=== PATIENT | female | born 1990 | race African-American/Black ===

== ENCOUNTER 2017-02-12 16:34 | Emergency (ER) | payer OTHER ==
[2017-02-12 16:43] VITALS: BP 126/62; PULSE 78; TEMP 98.8; BMI 30.4
[2017-02-12] MEDS ORDERED: clonazePAM 0.5 MG TABLET PO ONE ×2 (16:43→16:49)
[2017-02-12] MEDS ORDERED: clonazePAM 0.5 MG TABLET ONE (16:46)
--- NOTE | 2017-02-12 16:56 | PDOC ---
History of Present Illness <Lyn Brown - Last Filed: 02/12/17 17:13> - History of Present Illness Initial Comments: 02/12/17 17:01 The patient is a 26 year old female, with a significant past medical history of anxiety (reportedly taking 1mg clonazepam BID) and hypertension, who presents to the emergency department requesting a refill of her clonazepam and states she has been having a panic attack since yesterday. She reports feeling better now. However, pt reports that last night and this morning, she was very anxious". She reports taking her last dose of clonazepam around 3PM yesterday. She states she sees a psychiatrist at [facility] who prescribes her meds, and she had to schedule appointments with two therapists before I can see the psychiatrist, and my appointment is February 19. Pt now denies any complaints and is requesting a refill of her meds. I spoke with pt's psychiatrist, who states that pt has missed her last several appointments with her therapists. She denies chest pain, headache and dizziness. She denies fever, chills, nausea , vomit, diarrhea and constipation. She denies dysuria, frequency, urgency and hematuria. Allergies: NKDA Past surgical history: none reported Social history: Pt denies toxic habits <Blu Wright - Last Filed: 02/14/17 10:15> - General Chief Complaint: RX Refill Stated Complaint: PANICK ATTACK,NEEDS PRESCRIPTION REFILL Time Seen by Provider: 02/12/17 16:36 Past History <Lyn Brown - Last Filed: 02/12/17 17:13> - Past Medical History HTN: Yes Psychiatric Problems: Yes (ANXIETY) Thyroid Disease: Yes (HYPO) - Suicide/Smoking/Psychosocial Hx Smoking History: Never smoked Have you smoked in the past 12 months: No Information on smoking cessation initiated: No Hx Alcohol Use: No Drug/Substance Use Hx: No Substance Use Type: None <Blu Wright - Last Filed: 02/14/17 10:15> - Past Medical History Allergies/Adverse Reactions: Allergies Allergy/AdvReac Type Severity Reaction Status Date / Time No Known Allergies Allergy Verified 02/12/17 16:36 Home Medications: Ambulatory Orders Clonazepam [Klonopin] 1 mg PO BID 02/12/17 Levothyroxine [Synthroid -] 75 mcg PO DAILY 02/12/17 Lisinopril 10 mg PO DAILY 02/12/17 Review of Systems - Review of Systems Comments:: 02/12/17 17:07 """GENERAL/CONSTITUTIONAL: No fever or chills. No weakness. HEAD, EYES, EARS, NOSE AND THROAT: No change in vision. No ear pain or discharge. No sore throat. CARDIOVASCULAR: No chest pain or shortness of breath. RESPIRATORY: No cough, wheezing, or hemoptysis. GASTROINTESTINAL: No nausea, vomiting, diarrhea or constipation. GENITOURINARY: No dysuria, frequency, or change in urination. MUSCULOSKELETAL: No joint or muscle swelling or pain. No neck or back pain. SKIN: No rash NEUROLOGIC: No headache, vertigo, loss of consciousness, or change in strength/ sensation. ENDOCRINE: No increased thirst. No abnormal weight change. HEMATOLOGIC/LYMPHATIC: No anemia, easy bleeding, or history of blood clots. ALLERGIC/IMMUNOLOGIC: No hives or skin allergy. PSYCHIATRIC: (+) anxiety" <Blu Wright - Last Filed: 02/14/17 10:15> *Physical Exam - Vital Signs Last Vital Signs Temp Pulse Resp BP Pulse Ox 98.8 F 78 18 126/62 100 02/12/17 16:35 02/12/17 16:35 02/12/17 16:35 02/12/17 16:35 02/12/17 16:35 <Lyn Brown - Last Filed: 02/12/17 17:13> - Vital Signs Last Vital Signs Temp Pulse Resp BP Pulse Ox 98.8 F 78 18 126/62 100 02/12/17 16:35 02/12/17 16:35 02/12/17 16:35 02/12/17 16:35 02/12/17 16:35 - Physical Exam Comments: 02/12/17 17:08 """GENERAL: Awake, alert, and fully oriented, in no acute distress HEAD: No signs of trauma EYES: PERRLA, EOMI, sclera anicteric, conjunctiva clear ENT: Auricles normal inspection, hearing grossly normal, nares patent, oropharynx clear without exudates. Moist mucosa NECK: Nontender, no stepoffs, Normal ROM, supple, no lymphadenopathy, JVD, or masses LUNGS: Breath sounds equal, clear to auscultation bilaterally. No wheezes, and no crackles HEART: Regular rate and rhythm, normal S1 and S2, no murmurs, rubs or gallops ABDOMEN: Soft, nontender, normoactive bowel sounds. No guarding, no rebound. No masses EXTREMITIES: Normal range of motion, no edema. No clubbing or cyanosis. No cords, erythema, or tenderness NEUROLOGICAL: Cranial nerves II through XII intact. 5/5 strength and sensation in all extremities, Normal speech, normal gait PSYCH: not tremulous, no tongue fasciculations, no signs of active withdrawal SKIN: Warm, Dry, normal turgor, no rashes or lesions noted. """ <Blu Wright - Last Filed: 02/14/17 10:15> ED Treatment Course - Medications Given in the ED: ED Medications Discontinued Medications Generic Name Dose Route Start Last Admin Trade Name Freq PRN Reason Stop Dose Admin Clonazepam 1 mg 02/12/17 16:43 02/12/17 16:54 Klonopin - PO 02/12/17 16:44 Not Given ONCE ONE Clonazepam 0.5 mg 02/12/17 16:49 02/12/17 16:54 Klonopin - PO 02/12/17 16:50 0.5 mg ONCE ONE Administration <Lyn Brown - Last Filed: 02/12/17 17:13> Medical Decision Making - Medical Decision Making 02/12/17 16:58 [facility] was called ([phone]). I spoke with Systems Accountant, Naomi, who informed me the patient has an appointment for therapy on , 02/19/17. In a failed attempt to move the patient's appointment to a sooner date, I was informed the patient can call tomorrow to find out about any appointment openings for Thursday, 02/14 or Thursday, 02/16. I was also informed the patient had therapy appointments scheduled for 12/02 and 12/31 which the patient did not attend. As per Naomi, the psychiatrist will not see patients for refill medication without attendance to therapy sessions. <Lyn Brown - Last Filed: 02/12/17 17:13> - Medical Decision Making 02/12/17 17:09 26 F with anxiety presenting with panic attack, now resolved. Requesting refill of clonazepam. Pt with no signs of active benzo withdrawal. - Pt counseled on need to f/u with psychiatrist for her medication refills. Pt ALSO has PMD with whom she can follow up for prescription refills. - clonazepam 0.5mg - DC with psych f/u <Blu Wright - Last Filed: 02/14/17 10:15> *DC/Admit/Observation/Transfer <Lyn Brown - Last Filed: 02/12/17 17:13> - Attestations Physician Attestion: 02/12/17 17:12 I, Dr. Blu Wright MD, attest that this document has been prepared under my direction and personally reviewed by me in its entirety. I further attest, that it accurately reflects all work, treatment, procedures and medical decision -making performed by me. <Blu Wright - Last Filed: 02/14/17 10:15> Diagnosis at time of Disposition: Anxiety - Discharge Dispostion Disposition: HOME Condition at time of disposition: Stable - Patient Instructions Printed Discharge Instructions: DI for Anxiety -- Adult Additional Instructions: Follow up with your primary care doctor tomorrow for medication refill. Do not miss any more of your therapy appointments. You need to follow up with your psychiatrist regularly. If you experience chest pain, shortness of breath, or any other concerning symptoms, return to the ER immediately.
== END 2017-02-12 17:20 | disposition home or self-care (01) ==
LOC: FER 16:34
DX: Z76.0 Encounter for issue of repeat prescription (principal); E07.9 Disorder of thyroid, unspecified; F41.9 Anxiety disorder, unspecified
CPT/HCPCS: 99281-25

== ENCOUNTER 2018-12-17 19:21 | Emergency (ER) | payer OTHER ==
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
[2018-12-17 19:32] VITALS: BP 127/89; TEMP 99.5; BMI 33.3
[2018-12-17] MEDS ORDERED: IBUPROFEN 400 MG TABLET (FP) PO ONE ×2 (19:33→19:40)
[2018-12-17] MEDS ORDERED: NEOMYCIN/POLYMYXN/HC OTIC SUSPENSION 10 ML BOTTLE AS ONE (19:52)
[2018-12-17] MEDS ORDERED: CEFUROXIME IVPB ONE (19:56)
[2018-12-17] MEDS ORDERED: WATER IVPB ONE (19:56)
[2018-12-17] MEDS ORDERED: DEXTROSE 5% IVPB ONE (19:56)
[2018-12-17] MEDS ORDERED: CEFUROXIME NA 750 MG VIAL ONE (19:59)
[2018-12-17] MEDS ORDERED: NEOMYCIN/POLYMYXN/HC OTIC SUSPENSION 10 ML BOTTLE ONE (20:07)
[2018-12-17] MEDS ORDERED: CEFUROXIME AXETIL 500 MG TABLET ONE (20:14)
[2018-12-17] MEDS ORDERED: CEFUROXIME AXETIL 500 MG TABLET PO ONE (20:15)
[2018-12-17 20:29] VITALS: PULSE 116
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
== END 2018-12-17 20:29 | disposition home or self-care (01) ==
LOC: FER 19:21
DX: H60.92 Unspecified otitis externa, left ear (principal); I10 Essential (primary) hypertension; E03.9 Hypothyroidism, unspecified; F41.9 Anxiety disorder, unspecified; R00.0 Tachycardia, unspecified
CPT/HCPCS: 99282-25